=== PATIENT | female | born 1995 | race Two or more races ===

== ENCOUNTER 2021-12-23 21:53 | Emergency (ER) | payer SELFPAY ==
[~2021-12-23] VITALS: Ht 157.5 cm; Wt 81.8 kg
[2021-12-23 22:01] VITALS: BP 119/77
[2021-12-23 22:50] LABS: BACTERIA,URINE 0 /HPF (0-FEW); RBC,URINE 0 /HPF (0-2); WBC,URINE RARE /HPF (0-4)
--- NOTE | 2021-12-23 23:38 | RAD ---
Exam: Thoracic spine Date: 12/23/2021 11:17 PM CLINICAL HISTORY: Reason: back pain / Spl. Instructions: / History: COMPARISON: None available. FINDINGS: AP and lateral/swimmers views of the thoracic spine submitted. There is mild superimposed a rtifact at the cervicothoracic junction on the lateral view per technique. Exam shows preserved disc height throughout. Negative degenerative/proliferative changes. Negative compression fracture. Negative malalignment. Negative focal paraspinal line deviation/hematoma. IMPRESSION: No acute osseous abnormality. Electronically signed by: Kwabena Velarde MD (12/23/2021 11:35 PM) [facility]
--- NOTE | 2021-12-23 23:40 | RAD ---
EXAM: AP, lateral and lumbosacral spot views of the lumbar spine DATE: 12/23/2021 11:17 PM INDICATION: Reason: back pain / Spl. Instructions: / History: COMPARISON: No Prior FINDINGS: 5 nonrib-bearing lumbar-type vertebral bodies. Vertebral body heights are preserved. No acute fractur e. Disc heights are preserved. No spondylolisthesis. Cholecystectomy clips right upper quadrant. Moderate colonic stool content. IMPRESSION: 1. Negative acute fracture or subluxation Electronically signed by: Kwabena Velarde MD (12/23/2021 11:38 PM) [facility]
[2021-12-24] MEDS ORDERED: CYCL10TA19 PO (00:08)
[2021-12-24] MEDS ORDERED: NAPR-514 PO (00:08)
--- NOTE | 2021-12-24 00:08 | PHYS DOC ---
Past Medical History Past Surgical History: Appendectomy, Cholecystectomy Smoking Status: Never Smoker Alcohol Use: None General Adult EDM: Chief Complaint: BACK PAIN - NO INJURY HPI: HPI: Patient is a 26 year old female no significant medical history presenting to the ED today complaining of 8 out of 10 mid and low back pain, symptoms of been going on for 1 week. Patient denies any trauma. Describes the pain as throbbing and intermittent worse on lifting heavy items. 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 She states pain is usually relieved with Tylenol or ibuprofen but does not completely go away. Denies any urgency, frequency or dysuria. Denies any chest pain or shortness of breath. Denies any use of hormones, denies any personal family history of DVTs/PEs. Denies any recent surgeries or hospitalizations, denies any shortness of breath. Review of Systems: Review of Systems: Constitutional: Denies fever or chills. [] Eyes: Denies change in visual acuity. [] HENT: Denies nasal congestion or sore throat. [] Respiratory: Denies cough or shortness of breath. [] Cardiovascular: Denies chest pain or edema. [] GI: Denies abdominal pain, nausea, vomiting, bloody stools or diarrhea. [] : Denies dysuria. [] Musculoskeletal: Reports mid and low back pain Integument: Denies rash. [] Neurologic: Denies headache, focal weakness or sensory changes. [] [] Psychiatric: Denies depression or anxiety. [] Heart Score: C/O Chest Pain: N/A Risk Factors: Risk Factors: DM, Current or recent (<one month) smoker, HTN, HLP, family history of CAD, obesity. Risk Scores: Score 0 - 3: 2.5% MACE over next 6 weeks - Discharge Home Score 4 - 6: 20.3% MACE over next 6 weeks - Admit for Clinical Observation Score 7 - 10: 72.7% MACE over next 6 weeks - Early Invasive Strategies Allergies: Allergies: Allergies Coded Allergies Type Severity Reaction Last Updated Verified No Known Drug Allergies 12/23/21 No Physical Exam: PE: Constitutional: Well developed, well nourished, no acute distress, non-toxic appearance. [] HENT: Normocephalic, atraumatic, bilateral external ears normal, oropharynx moist, no oral exudates, nose normal. [] Eyes: PERRLA, EOMI, conjunctiva normal, no discharge. [] Neck: Normal range of motion, no tenderness, supple, no stridor. [] Cardiovascular:Heart rate regular rhythm, no murmur [] Lungs & Thorax: Bilateral breath sounds clear to auscultation [] Abdomen: Bowel sounds normal, soft, no tenderness, no masses, no pulsatile masses. [] Skin: Warm, dry, no erythema, no rash. [] Back: No tenderness, no CVA tenderness. [] Extremities: No tenderness, no cyanosis, no clubbing, ROM intact, no edema. [] Neurologic: Alert and oriented X 3, normal motor function, normal sensory function, no focal deficits noted. [] Psychologic: Affect normal, judgement normal, mood normal. [] Current Patient Data: Labs: Laboratory Tests Test 12/23/21 22:25 12/23/21 22:38 Urine Collection Type Unknown Urine Color (Auto) Light yellow Urine Turbidity Clear Urine pH (Auto) 6.5 (<5.0-8.0) Urine Specific [place] 1.022 (1.000-1.030) Urine Protein (Auto) Negative mg/dL (Negative) Urine Glucose (Auto)(UA) Negative mg/dL (Negative) Urine Ketones (Auto) 10 mg/dL (Negative) Urine Blood (Auto) Negative (Negative) Urine Nitrite Negative (Negative) Urine Bilirubin (Auto) Negative (Negative) Urine Urobilinogen (Auto) Normal mg/dL (Normal) Urine Leukocyte Esterase (Auto) Negative (Negative) Urine RBC 0 /HPF (0-2) Urine WBC Rare /HPF (0-4) Urine Squamous Epithelial Cells Few /LPF Urine Bacteria 0 /HPF (0-FEW) Urine Mucus Slight /LPF POC Urine HCG, Qualitative Hcg negative (Negative) Vital Signs: Vital Signs Date Time Temp Pulse Resp B/P (MAP) Pulse Ox O2 Delivery O2 Flow Rate FiO2 12/23/21 22:01 99.1 88 14 119/77 (91) 99 Room Air 99.1 EKG: EKG: [] Radiology/Procedures: Radiology/Procedures: []PROCEDURE: THORACIC SPINE 3V Exam: Thoracic spine Date: 12/23/2021 11:17 PM CLINICAL HISTORY: Reason: back pain / Spl. Instructions: / History: COMPARISON: None available. FINDINGS: AP and lateral/swimmers views of the thoracic spine submitted. There is mild superimposed artifact at the cervicothoracic junction on the lateral view per technique. Exam shows preserved disc height throughout. Negative degenerative/proliferative changes. Negative compression fracture. Negative malalignment. Negative focal paraspinal line deviation/hematoma. IMPRESSION: No acute osseous abnormality. Electronically signed by: Kwabena Velarde MD (12/23/2021 11:35 PM) [facility] DICTATED and SIGNED BY: KWABENA VELARDE MD DATE: 12/23/212334 PROCEDURE: LUMBAR SPINE 2-3V EXAM: AP, lateral and lumbosacral spot views of the lumbar spine DATE: 12/23/2021 11:17 PM INDICATION: Reason: back pain / Spl. Instructions: / History: COMPARISON: No Prior FINDINGS: 5 nonrib-bearing lumbar-type vertebral bodies. Vertebral body heights are preserved. No acute fracture. Disc heights are preserved. No spondylolisthesis. Cholecystectomy clips right upper quadrant. Moderate colonic stool content. IMPRESSION: 1. Negative acute fracture or subluxation Electronically signed by: Kwabena Velarde MD (12/23/2021 11:38 PM) [facility] DICTATED and SIGNED BY: KWABENA VELARDE MD DATE: 12/23/212334 Course & Med Decision Making: Course & Med Decision Making Pertinent Labs and Imaging studies reviewed. (See chart for details) This a 26-year-old female patient presented to the ED today with mid and low back pain that began a week ago, no known injury. No cauda equina syndrome symptoms. PERC score 0. Negative urine hCG, thoracic and lumbar spine x-rays are negative for any acute findings, UA negative for infection. Pain is muscle skeletal. Discharged with naproxen and Flexeril. Follow-up with PCP in 1 week. Theo Disclaimer: Theo Disclaimer: This electronic medical record was generated, in whole or in part, using a voice recognition dictation system. Departure Departure Impression: Primary Impression: Low back pain Qualified Codes: M54.50 - Low back pain, unspecified Additional Impression: Mid back pain Disposition: HOME / SELF CARE / HOMELESS Condition: STABLE Referrals: NO PCP (PCP) Follow-up with your primary care doctor in 1 to 2 weeks Patient Instructions: Back Pain, Adult Additional Instructions: You were evaluated in the emergency room for mid and low back pain. Your urine has no infection, your x-rays of the mid and low back are negative. Please apply heating pad to your back. Use the prescribed medications as needed for your symptoms. Follow-up with your doctor in 1 to 2 weeks. Scripts Naproxen (NAPROXEN) 500 Mg Tablet 1 TAB PO BID for pain, #14 TAB 0 Refills Prov: AUDIE WHITESIDE APRN 12/24/21 Cyclobenzaprine Hcl (CYCLOBENZAPRINE HCL) 10 Mg Tablet 1 TAB PO TID, #30 TAB Prov: AUDIE WHITESIDE APRN 12/24/21 AUDIE WHITESIDE APRN Dec 24, 2021 00:08
== END 2021-12-24 00:40 | disposition home or self-care (01) ==
LOC: ER 21:53
DX: M54.6 Pain in thoracic spine (principal); M54.50 Low back pain, unspecified; Z90.89 Acquired absence of other organs; Z90.49 Acquired absence of other specified parts of digestive tract
CPT/HCPCS: 72072; 72100; 81001; 81025; 99284